=== PATIENT | male | born 1975 | race Caucasian/White ===

== ENCOUNTER 2017-03-27 17:19 | Emergency (ER) | payer OTHER ==
[~2017-03-27 17:19] MED LIST: CLEOCIN HCL300 M1 PO; LORTAB 5-325 M1 EACH PO; MOTRIN600 MG PO; NO MEDICATIONS; TYLENOL #3 PO; ZOFRAN ODT4 MG PO
== END 2017-03-27 18:45 | disposition home or self-care (01) ==
LOC: SED 17:19
DX: L23.7 Allergic contact dermatitis due to plants, except food (principal); L03.116 Cellulitis of left lower limb; L03.115 Cellulitis of right lower limb; F17.210 Nicotine dependence, cigarettes, uncomplicated
CPT/HCPCS: 99282